=== PATIENT | female | born 1980 | race Caucasian/White ===

== ENCOUNTER 2022-06-18 17:33 | Emergency (ER) | payer OTHER ==
[2022-06-18 19:29] LABS: BASOPHIL 0.5 % (0-2); EOSINOPHIL 1.9 % (0-5); HCT 41.6 % (37.0-47.0); HGB 13.6 g/dl (12.5-16.0); LYMPHOCYTE 30.8 % (15-48); MCH 28.1 pg (25.0-31.0); MCHC 32.7 g/dL (32.0-36.0); MPV 9.9 fL (6.0-9.5); NRBC 0; PLT 273 K/uL (150-400); RBC 4.84 M/uL (4.20-5.40); RDW 12.2 % (11.5-14.0); WBC 8.3 K/uL (4.0-10.5)
[2022-06-18 19:44] LABS: BUN/CREAT RATIO (CALC) 22.5 RATIO; CREATININE 0.71 mg/dL (0.51-0.95)
[2022-06-18 20:03] LABS: CORONAVIRUS 2019 SARS-COV-2 NEGATIVE (NEGATIVE); INFLUENZA A NAA NEGATIVE (NEGATIVE)
[2022-06-18] MEDS ORDERED: NAPROXEN500 MG PO (21:49)
[2022-06-18] MEDS ORDERED: BACLOFEN 10MG T10 MG PO (21:49)
== END 2022-06-18 23:08 | disposition home or self-care (01) ==
LOC: FER 17:33
PROVIDERS: Nurse Practitioner Family
DX: G44.209 Tension-type headache, unspecified, not intractable (principal); F17.210 Nicotine dependence, cigarettes, uncomplicated; Z20.822 Contact with and (suspected) exposure to COVID-19; Z28.310 Unvaccinated for COVID-19
CPT/HCPCS: 36415; 70450; 80048; 85025; J1100; J1200; J1885; J7030; U0002